=== PATIENT | female | born 1970 | race Caucasian/White ===

== ENCOUNTER 2016-06-24 08:20 | Emergency (ER) | payer MEDICAID ==
[2016-06-24] MEDS ORDERED: 0.9 % SODIUM CHLORIDE 1,000 ML BAG IV ONE (09:04)
--- NOTE | 2016-06-24 09:20 | Emergency Department Record ---
History of Present Illness - General Chief complaint: Extremity Problem Stated complaint: GROIN PAIN SWOLLEN/RT SIDE Time Seen by Provider: 06/24/16 08:57 Source: Patient Mode of Arrival: Ambulatory Limitations: No limitations - History of Present Illness Initial comments: pt c/o rlq and r groin pain w swelling. it hurts to walk. she had cervical ca w mets and had hysterectomy, radiation and chemo Complaint: Abdominal Pain Onset/Timin -: Days(s) Location: Right, Other History of Same: No Severity scale (1-10): 9 Quality: Stabbing, Other Consistency: Constant Improves with: Nothing Worsens with: Nothing Associated Symptoms: Denies other symptoms - Related Data Previous Rx's Medication Instructions Recorded Ciprofloxacin HCl [Cipro] 500 mg PO Q12HR #14 tablet 02/17/16 Naproxen [Naprosyn] 500 mg PO Q12H PRN #10 tab. 02/22/16 Ondansetron [Zofran Odt] 4 mg PO Q8H PRN #10 tab.fabio 02/22/16 Sulfamethoxazole/Trimethoprim 1 each PO BID #14 tablet 06/24/16 [Bactrim Ds Tablet] Allergies Allergy/AdvReac Type Severity Reaction Status Date / Time hydrocodone bitartrate AdvReac VOMITING Verified 06/24/16 08:38 [From Vicodin] Travel Screening - Travel/Exposure Within Last 30 Days Have you traveled within the last 30 days?: No - Travel/Exposure Within Last Year Have you traveled outside the [place] in the last year?: No - Additonal Travel Details Have you been exposed to anyone with a communicable illness?: No - Travel Symptoms Symptom Screening: None Review of Systems Reviewed: No additional complaints except as noted below Constitutional: Reports: As per HPI. Denies: Chills, Fever, Malaise, Night sweats, Weakness, Weight change Eyes: Reports: As per HPI. Denies: Eye discharge, Eye pain, Photophobia, Vision change ENT: Reports: As per HPI. Denies: Congestion, Dental pain, Ear pain, Epistaxis , Hearing loss, Throat pain Respiratory: Reports: As per HPI. Denies: Cough, Dyspnea, Hemoptysis, Stridor, Wheezes Cardiovascular: Reports: As per HPI. Denies: Arrhythmia, Chest pain, Dyspnea on exertion, Edema, Murmurs, Orthopnea, Palpitations, Paroxysmal nocturnal dyspnea, Rheumatic Fever, Syncope Endocrine: Reports: As per HPI. Denies: Fatigue, Heat or cold intolerance, Polydipsia, Polyuria Gastrointestinal: Reports: As per HPI. Denies: Abdominal pain, Constipation, Diarrhea, Hematemesis, Hematochezia, Melena, Nausea, Vomiting Genitourinary: Reports: As per HPI. Denies: Abnormal menses, Discharge, Dyspareunia, Dysuria, Frequency, Hematuria, Incontinence, Retention, Urgency Musculoskeletal: Reports: As per HPI. Denies: Arthralgia, Back pain, Gout, Joint swelling, Myalgia, Neck pain Skin: Reports: As per HPI. Denies: Bruising, Change in color, Change in hair/ nails, Lesions, Pruritus, Rash Neurological: Reports: As per HPI. Denies: Abnormal gait, Confusion, Headache, Numbness, Paresthesias, Seizure, Tingling, Tremors, Vertigo, Weakness Psychiatric: Reports: As per HPI. Denies: Anxiety, Auditory hallucinations, Depression, Homicidal thoughts, Suicidal thoughts, Visual hallucinations Hematological/Lymphatic: Reports: As per HPI. Denies: Anemia, Blood Clots, Easy bleeding, Easy bruising, Swollen glands Past Medical History - SOCIAL HISTORY Smoking Status: Former smoker Alcohol Use: None Drug Use: None - RESPIRATORY Hx Respiratory Disorders: No - CARDIOVASCULAR Hx Cardio Disorders: No - NEURO Hx Neuro Disorders: No - GI Hx GI Disorders: No - Hx Genitourinary Disorders: No - ENDOCRINE Hx Endocrine Disorders: No - MUSCULOSKELETAL Hx Musculoskeletal Disorders: No - PSYCH Hx Psych Problems: Yes Hx Anxiety: Yes - HEMATOLOGY/ONCOLOGY Hx Hematology/Oncology Disorders: Yes Hx Cancer: Yes (cervical) Hx Chemotherapy: Yes (02/10/16) Hx Radiation Therapy: Yes (02/10/16) Comment:: surgery Family Medical History Any Significant Family History?: Yes Hx HTN: Father, Mother Physical Exam - General General Appearance: Alert, Oriented x3, Cooperative, Mild distress - Head Head exam: Normal inspection - Eye Eye exam: Normal appearance, PERRL, EOMI Pupils: Normal accommodation - ENT ENT exam: Normal exam, Mucous membranes moist, Normal external ear exam, Normal orophraynx, TM's normal bilaterally Ear exam: Normal external inspection. negative: External canal tenderness Nasal Exam: Normal inspection. negative: Discharge, Sinus tenderness Mouth exam: Normal external inspection, Tongue normal Teeth exam: Normal inspection. negative: Dental caries Throat exam: Normal inspection. negative: Tonsillar erythema, Tonsillar exudate - Neck Neck exam: Normal inspection, Full ROM. negative: Tenderness - Respiratory Respiratory exam: Normal lung sounds bilaterally. negative: Respiratory distress - Cardiovascular Cardiovascular Exam: Regular rate, Normal rhythm, Normal heart sounds - GI/Abdominal GI/Abdominal exam: Soft, Normal bowel sounds, Tenderness - Rectal Rectal exam: Deferred - exam: Deferred - Extremities Extremities exam: Normal inspection, Full ROM, Normal capillary refill. negative: Tenderness - Back Back exam: Reports: Normal inspection, Full ROM. Denies: Muscle spasm, Rash noted, Tenderness - Neurological Neurological exam: Alert, CN II-XII intact, Normal gait, Oriented X3 - Psychiatric Psychiatric exam: Normal affect, Normal mood - Skin Skin exam: Dry, Intact, Normal color, Warm Course Vital Signs 06/24/16 08:41 Temperature 99.3 F Pulse Rate 86 Respiratory 20 Rate Blood Pressure 114/68 Pulse Ox 97 - Reevaluation(s) Reevaluation #1: 06/24/16 13:38 ct shows cellulitis vs anasarca Medical Decision Making - Lab Data Result diagrams: 06/24/16 09:44 06/24/16 09:44 Disposition Disposition: Discharge Clinical Impression: Cellulitis Qualifiers: Site of cellulitis: trunk Site of cellulitis of trunk: groin Qualified Code(s) : L03.314 - Cellulitis of groin Disposition: Home, Self-Care Condition: (1) Good Instructions: Cellulitis (ED) Additional Instructions: follow up with family doctor. return sooner if worse Prescriptions: Sulfamethoxazole/Trimethoprim [Bactrim Ds Tablet] 1 each PO BID #14 tablet Forms: Patient Portal Access
[2016-06-24 09:52] LABS: BASO % 0.3 % (0-6); EOS % 2.1 % (0-6); GRAN % 63.8 % (47-80); HEMATOCRIT 38.5 % (35.0-47.0); HEMOGLOBIN 12.8 gm/dl (11.6-16.0); MEAN CELL VOLUME 97.5 fl (81-97); MEAN CORPUSCULAR HEMOGLOBIN 32.4 pg (27-33); MEAN CORPUSCULAR HGB CONC 33.2 g/dl (32-36); MONO % 12.8 % (0-9); PLATELET COUNT 200 K/uL (130-400); RED BLOOD COUNT 3.95 M/uL (3.80-5.40); RED CELL DISTRIBUTION WIDTH 12.1 % (11.5-14.5); WHITE BLOOD COUNT W/O DIFF 3.3 K/uL (4.2-12.2)
[2016-06-24 09:55] LABS: URINE APPEARANCE CLEAR; URINE BILIRUBIN NEGATIVE (NEGATIVE); URINE BLOOD NEGATIVE (NEGATIVE); URINE COLOR YELLOW; URINE GLUCOSE (UA) NEGATIVE (NEGATIVE); URINE KETONE NEGATIVE (NEGATIVE); URINE LEUKOCYTE ESTERASE NEGATIVE (NEGATIVE); URINE NITRITE NEGATIVE (NEGATIVE); URINE PROTEIN NEGATIVE (NEGATIVE); URINE UROBILINOGEN 0.2 E.U./dL (0.20 - 1.00)
[2016-06-24 10:04] LABS: ALB/GLOB RATIO 1.4 (1.1-1.8); ALBUMIN 3.6 gm/dL (3.5-5.0); ALKALINE PHOSPHATASE 55 U/L (38-126); ALT/SGPT 33 U/L (9-52); AST/SGOT 21 U/L (14-36); BILIRUBIN,TOTAL 0.35 mg/dL (0.2-1.3); BLOOD UREA NITROGEN 11 mg/dL (7-17); CREATININE 0.7 mg/dL (0.52-1.04); EST GLOMERULAR FILTRATION RATE > 60 ml/min; GLUCOSE,RANDOM 88 mg/dL (70-110); TOTAL PROTEIN 6.1 gm/dL (6.3-8.2)
[2016-06-24] MEDS ORDERED: ONDANSETRON HCL IV 4 MG/2 ML VIAL IVP ONE (11:49)
--- NOTE | 2016-06-24 13:46 | Emergency Department Record ---
History of Present Illness - General Chief complaint: Extremity Problem Stated complaint: GROIN PAIN SWOLLEN/RT SIDE Time Seen by Provider: 06/24/16 08:57 Source: Patient Mode of Arrival: Ambulatory Limitations: No limitations - History of Present Illness Onset/Timin -: Days(s) Location: Right, Other History of Same: No Severity scale (1-10): 9 Quality: Stabbing, Other Consistency: Constant Improves with: Nothing Worsens with: Nothing Associated Symptoms: Denies other symptoms - Related Data Previous Rx's Medication Instructions Recorded Ciprofloxacin HCl [Cipro] 500 mg PO Q12HR #14 tablet 02/17/16 Naproxen [Naprosyn] 500 mg PO Q12H PRN #10 tab. 02/22/16 Ondansetron [Zofran Odt] 4 mg PO Q8H PRN #10 tab.fabio 02/22/16 Oxycodone HCl/Acetaminophen 1 tab PO Q6H PRN #10 tab 06/24/16 [Percocet 5mg/325mg] Sulfamethoxazole/Trimethoprim 1 each PO BID #14 tablet 06/24/16 [Bactrim Ds Tablet] Allergies Allergy/AdvReac Type Severity Reaction Status Date / Time hydrocodone bitartrate AdvReac VOMITING Verified 06/24/16 08:38 [From Vicodin] Travel Screening - Travel/Exposure Within Last 30 Days Have you traveled within the last 30 days?: No - Travel/Exposure Within Last Year Have you traveled outside the [place] in the last year?: No - Additonal Travel Details Have you been exposed to anyone with a communicable illness?: No - Travel Symptoms Symptom Screening: None Review of Systems Constitutional: Reports: As per HPI. Denies: Chills, Fever, Malaise, Night sweats, Weakness, Weight change Eyes: Reports: As per HPI. Denies: Eye discharge, Eye pain, Photophobia, Vision change ENT: Reports: As per HPI. Denies: Congestion, Dental pain, Ear pain, Epistaxis , Hearing loss, Throat pain Respiratory: Reports: As per HPI. Denies: Cough, Dyspnea, Hemoptysis, Stridor, Wheezes Cardiovascular: Reports: As per HPI. Denies: Arrhythmia, Chest pain, Dyspnea on exertion, Edema, Murmurs, Orthopnea, Palpitations, Paroxysmal nocturnal dyspnea, Rheumatic Fever, Syncope Endocrine: Reports: As per HPI. Denies: Fatigue, Heat or cold intolerance, Polydipsia, Polyuria Gastrointestinal: Reports: As per HPI. Denies: Abdominal pain, Constipation, Diarrhea, Hematemesis, Hematochezia, Melena, Nausea, Vomiting Genitourinary: Reports: As per HPI. Denies: Abnormal menses, Discharge, Dyspareunia, Dysuria, Frequency, Hematuria, Incontinence, Retention, Urgency Musculoskeletal: Reports: As per HPI. Denies: Arthralgia, Back pain, Gout, Joint swelling, Myalgia, Neck pain Skin: Reports: As per HPI. Denies: Bruising, Change in color, Change in hair/ nails, Lesions, Pruritus, Rash Neurological: Reports: As per HPI. Denies: Abnormal gait, Confusion, Headache, Numbness, Paresthesias, Seizure, Tingling, Tremors, Vertigo, Weakness Psychiatric: Reports: As per HPI. Denies: Anxiety, Auditory hallucinations, Depression, Homicidal thoughts, Suicidal thoughts, Visual hallucinations Hematological/Lymphatic: Reports: As per HPI. Denies: Anemia, Blood Clots, Easy bleeding, Easy bruising, Swollen glands Past Medical History - SOCIAL HISTORY Smoking Status: Former smoker Alcohol Use: None Drug Use: None - RESPIRATORY Hx Respiratory Disorders: No - CARDIOVASCULAR Hx Cardio Disorders: No - NEURO Hx Neuro Disorders: No - GI Hx GI Disorders: No - Hx Genitourinary Disorders: No - ENDOCRINE Hx Endocrine Disorders: No - MUSCULOSKELETAL Hx Musculoskeletal Disorders: No - PSYCH Hx Psych Problems: Yes Hx Anxiety: Yes - HEMATOLOGY/ONCOLOGY Hx Hematology/Oncology Disorders: Yes Hx Cancer: Yes (cervical) Hx Chemotherapy: Yes (02/10/16) Hx Radiation Therapy: Yes (02/10/16) Comment:: surgery Family Medical History Any Significant Family History?: Yes Hx HTN: Father, Mother Physical Exam - General Limitations: No limitations Course Vital Signs 06/24/16 08:41 Temperature 99.3 F Pulse Rate 86 Respiratory 20 Rate Blood Pressure 114/68 Pulse Ox 97 Medical Decision Making - Lab Data Result diagrams: 06/24/16 09:44 06/24/16 09:44 Lab Results 06/24/16 06/24/16 06/24/16 Range/Units 09:44 09:44 09:44 WBC 3.3 L (4.2-12.2) K/uL RBC 3.95 (3.80-5.40) M/uL Hgb 12.8 (11.6-16.0) gm/dl Hct 38.5 (35.0-47.0) % MCV 97.5 H (81-97) fl MCH 32.4 (27-33) pg MCHC 33.2 (32-36) g/dl RDW 12.1 (11.5-14.5) % Plt Count 200 (130-400) K/uL MPV 11.0 H (7.4-10.4) fl Gran % 63.8 (47-80) % Lymphocytes % 21.0 (16-45) % Monocytes % 12.8 H (0-9) % Eosinophils % 2.1 (0-6) % Basophils % 0.3 (0-6) % D-Dimer 0.26 (0-0.59) mg/L FEU Sodium 139 (136-145) mmol/L Potassium 3.7 (3.5-5.1) mmol/L Chloride 108 H (98-107) mmol/L Carbon Dioxide 27.0 (22-30) mmol/L Anion Gap 4.0 L (7-16) BUN 11 (7-17) mg/dL Creatinine 0.7 (0.52-1.04) mg/dL Estimated GFR > 60 ml/min Random Glucose 88 (70-110) mg/dL Calcium 8.6 (8.5-10.1) mg/dL Total Bilirubin 0.35 (0.2-1.3) mg/dL AST 21 (14-36) U/L ALT 33 (9-52) U/L Alkaline Phosphatase 55 (38-126) U/L Total Protein 6.1 L (6.3-8.2) gm/dL Albumin 3.6 (3.5-5.0) gm/dL Globulin 2.5 (1.4-4.8) gm/dL Albumin/Globulin Ratio 1.4 (1.1-1.8) Urine Color Urine Appearance Urine pH (5.0-8.0) Ur Specific Marshall (1.002-1.030) Urine Protein (NEGATIVE) Urine Glucose (UA) (NEGATIVE) Urine Ketones (NEGATIVE) Urine Blood (NEGATIVE) Urine Nitrite (NEGATIVE) Urine Bilirubin (NEGATIVE) Urine Urobilinogen (0.20 - 1.00) E.U./dL Ur Leukocyte Esterase (NEGATIVE) 06/24/16 Range/Units 09:49 WBC (4.2-12.2) K/uL RBC (3.80-5.40) M/uL Hgb (11.6-16.0) gm/dl Hct (35.0-47.0) % MCV (81-97) fl MCH (27-33) pg MCHC (32-36) g/dl RDW (11.5-14.5) % Plt Count (130-400) K/uL MPV (7.4-10.4) fl Gran % (47-80) % Lymphocytes % (16-45) % Monocytes % (0-9) % Eosinophils % (0-6) % Basophils % (0-6) % D-Dimer (0-0.59) mg/L FEU Sodium (136-145) mmol/L Potassium (3.5-5.1) mmol/L Chloride (98-107) mmol/L Carbon Dioxide (22-30) mmol/L Anion Gap (7-16) BUN (7-17) mg/dL Creatinine (0.52-1.04) mg/dL Estimated GFR ml/min Random Glucose (70-110) mg/dL Calcium (8.5-10.1) mg/dL Total Bilirubin (0.2-1.3) mg/dL AST (14-36) U/L ALT (9-52) U/L Alkaline Phosphatase (38-126) U/L Total Protein (6.3-8.2) gm/dL Albumin (3.5-5.0) gm/dL Globulin (1.4-4.8) gm/dL Albumin/Globulin Ratio (1.1-1.8) Urine Color Yellow Urine Appearance Clear Urine pH 8.0 (5.0-8.0) Ur Specific Marshall 1.020 (1.002-1.030) Urine Protein Negative (NEGATIVE) Urine Glucose (UA) Negative (NEGATIVE) Urine Ketones Negative (NEGATIVE) Urine Blood Negative (NEGATIVE) Urine Nitrite Negative (NEGATIVE) Urine Bilirubin Negative (NEGATIVE) Urine Urobilinogen 0.2 (0.20 - 1.00) E.U./dL Ur Leukocyte Esterase Negative (NEGATIVE) Disposition Clinical Impression: Cellulitis Qualifiers: Site of cellulitis: trunk Site of cellulitis of trunk: groin Qualified Code(s) : L03.314 - Cellulitis of groin Disposition: Home, Self-Care Condition: (1) Good Instructions: Cellulitis (ED) Additional Instructions: follow up with family doctor. return sooner if worse Prescriptions: Sulfamethoxazole/Trimethoprim [Bactrim Ds Tablet] 1 each PO BID #14 tablet Oxycodone HCl/Acetaminophen [Percocet 5mg/325mg] 1 tab PO Q6H PRN #10 tab PRN Reason: Pain - Moderate (5-7) Forms: Patient Portal Access
--- NOTE | 2016-06-28 13:33 | CT SCAN REPORT ---
EXAM: ABDOMEN AND PELVIS CT WITH IV CONTRAST HISTORY: ACUTE RIGHT GROIN PAIN FOR THREE DAYS. TECHNIQUE: Contiguous axial images from the lung bases to the symphysis pubis were obtained after the uneventful intravenous administration of 100 ml of Omnipaque 300. Oral contrast was also utilized. Comparison: Abdominal ultrasound 02/21/16. Abdomen CT 11/30/14. FINDINGS: The lung bases are clear. The liver, spleen, kidneys, adrenals, pancreas and gallbladder are unremarkable. The visualized loops of small and large bowel are of normal caliber with no bowel wall thickening. Normal appendix. Moderate fecal material throughout the colon. There is wall thickening of the urinary bladder with adjacent inflammatory fat stranding for which acute cystitis is not excluded. No free intraperitoneal fluid or adenopathy. No lytic or blastic osseous lesion. There is no evidence of inguinal hernia. Tiny small, but conspicuous inguinal lymph nodes bilaterally. Minimal fat stranding in the inguinal regions. IMPRESSION: 1. URINARY BLADDER WALL THICKENING WITH ADJACENT INFLAMMATORY FAT STRANDING FOR WHICH ACUTE CYSTITIS IS NOT EXCLUDED. 2. SUBCUTANEOUS FAT STRANDING IN THE INGUINAL REGIONS COULD RELATE TO ANASARCA OR CELLULITIS. CLINICALLY CORRELATE. JOB NUMBER: [id number] [facility]
== END 2016-06-24 13:52 | disposition home or self-care (01) ==
LOC: ER 08:20
DX: L03.314 Cellulitis of groin (principal); R10.31 Right lower quadrant pain; Z85.41 Personal history of malignant neoplasm of cervix uteri
CPT/HCPCS: 99284 ×2; 96374; 85025; 80053; 81003; 85379; 74177; Q9967; J2405; J7030

== ENCOUNTER 2016-07-23 21:28 | Emergency (ER) | payer MEDICAID ==
[2016-07-23 21:45] LABS: BASO % 0.4 % (0-6); EOS % 2.5 % (0-6); GRAN % 59.1 % (47-80); HEMATOCRIT 38.1 % (35.0-47.0); HEMOGLOBIN 12.8 gm/dl (11.6-16.0); LYMPH % 26.7 % (16-45); MEAN CELL VOLUME 96.5 fl (81-97); MEAN CORPUSCULAR HEMOGLOBIN 32.4 pg (27-33); MEAN CORPUSCULAR HGB CONC 33.6 g/dl (32-36); MEAN PLATELET VOLUME 10.8 fl (7.4-10.4); MONO % 11.3 % (0-9); PLATELET COUNT 221 K/uL (130-400); RED BLOOD COUNT 3.95 M/uL (3.80-5.40); RED CELL DISTRIBUTION WIDTH 12.2 % (11.5-14.5); WHITE BLOOD COUNT W/O DIFF 4.8 K/uL (4.2-12.2)
[2016-07-23 21:57] LABS: ALB/GLOB RATIO 1.6 (1.1-1.8); ALBUMIN 3.9 gm/dL (3.5-5.0); ALKALINE PHOSPHATASE 62 U/L (38-126); ALT/SGPT 27 U/L (9-52); ANION GAP 7.2 (7-16); AST/SGOT 22 U/L (14-36); BILIRUBIN,TOTAL 0.48 mg/dL (0.2-1.3); BLOOD UREA NITROGEN 8 mg/dL (7-17); CARBON DIOXIDE 27.8 mmol/L (22-30); CREATINE PHOSPHOKINASE 94 U/L (30-135); CREATININE 0.8 mg/dL (0.52-1.04); EST GLOMERULAR FILTRATION RATE > 60 ml/min; GLUCOSE,RANDOM 110 mg/dL (70-110); TOTAL PROTEIN 6.4 gm/dL (6.3-8.2)
--- NOTE | 2016-07-23 21:57 | Emergency Department Record ---
History of Present Illness - General Chief Complaint: Chest Pain Stated Complaint: CHEST PAIN Time Seen by Provider: 07/23/16 21:36 Source: Patient Mode of Arrival: Ambulatory Limitations: No limitations - History of Present Illness Initial Comments: 45 yo female presents to ED with a CC of "chest pressure" that began 30 minutes prior to arrival, described as "heaviness". Patient reports similar symptoms for the past couple of months, denies previous heart or lung problems. Patient does report that she is being evaluated by a traveling phlebotomist but cannot remember his names, is wearing a monitor tech prior to arrival. Patient reports a history of elevated cholesterol and cervical cancer s/p chemo and radiation that was completed 5 months ago. Patient denies h/o DVT. denies yonatan pain, swelling, or pain with deep breaths. Patient denies fevers, chills, or cough symptoms. MD Complaint: Chest pain Onset/Timin -: Hour(s) Onset: Other Pain Location: Substernal, Epigastric Pain Radiation: Neck Severity: Moderate Severity scale (1-10): 6 Quality: Tightness Consistency: Constant, Intermittent Improves With: Nothing Worsens With: Movement Treatments Prior to Arrival: None - Related Data On Oral Contraceptives: No Home Medications Medication Instructions Recorded Confirmed Last Taken No Home Med [NO HOME MEDS] 07/23/16 07/23/16 Unknown Allergies Allergy/AdvReac Type Severity Reaction Status Date / Time hydrocodone bitartrate AdvReac VOMITING Verified 07/23/16 21:29 [From Vicodin] Travel Screening - Travel/Exposure Within Last 30 Days Have you traveled within the last 30 days?: No - Travel/Exposure Within Last Year Have you traveled outside the [place] in the last year?: No - Additonal Travel Details Have you been exposed to anyone with a communicable illness?: No - Travel Symptoms Symptom Screening: None Review of Systems Constitutional: Denies: Chills, Fever, Malaise, Night sweats Eyes: Denies: Eye discharge, Eye pain ENT: Denies: Congestion, Ear pain, Epistaxis Respiratory: Denies: Cough, Dyspnea Cardiovascular: Reports: Chest pain. Denies: Dyspnea on exertion, Palpitations Endocrine: Denies: Fatigue, Heat or cold intolerance Gastrointestinal: Denies: Abdominal pain, Nausea, Vomiting Genitourinary: Denies: Incontinence, Retention Musculoskeletal: Denies: Arthralgia, Back pain, Gout, Joint swelling Skin: Denies: Bruising, Change in color Neurological: Denies: Abnormal gait, Confusion, Headache, Seizure Psychiatric: Denies: Anxiety Hematological/Lymphatic: Denies: Anemia, Blood Clots Past Medical History - SOCIAL HISTORY Smoking Status: Former smoker Alcohol Use: None Drug Use: None - RESPIRATORY Hx Respiratory Disorders: No - CARDIOVASCULAR Hx Cardio Disorders: No - NEURO Hx Neuro Disorders: No - GI Hx GI Disorders: No - Hx Genitourinary Disorders: No - ENDOCRINE Hx Endocrine Disorders: No - MUSCULOSKELETAL Hx Musculoskeletal Disorders: No - PSYCH Hx Psych Problems: Yes Hx Anxiety: Yes - HEMATOLOGY/ONCOLOGY Hx Hematology/Oncology Disorders: Yes Hx Cancer: Yes (cervical) Hx Chemotherapy: Yes (02/10/16) Hx Radiation Therapy: Yes (02/10/16) Comment:: surgery Family Medical History Any Significant Family History?: No Hx HTN: Father, Mother Physical Exam - General General Appearance: Alert, Oriented x3, Cooperative, Moderate distress Limitations: No limitations - Head Head exam: Atraumatic, Normocephalic, Normal inspection Head exam detail: negative: Abrasion, Contusion, Lang's sign, General tenderness, Hematoma, Laceration - Eye Eye exam: Normal appearance. negative: Conjunctival injection, Periorbital swelling, Periorbital tenderness, Scleral icterus - ENT Ear exam: negative: Auricular hematoma, Auricular trauma Nasal Exam: negative: Active bleeding, Discharge, Dried blood, Foreign body Mouth exam: negative: Drooling, Laceration, Muffled voice, Tongue elevation - Neck Neck exam: Normal inspection. negative: Meningismus, Tenderness - Respiratory Respiratory exam: Normal lung sounds bilaterally. negative: Rales, Respiratory distress, Rhonchi, Stridor - Cardiovascular Cardiovascular Exam: Regular rate, Normal rhythm, Normal heart sounds - GI/Abdominal GI/Abdominal exam: Soft. negative: Rebound, Rigid, Tenderness - Rectal Rectal exam: Deferred - exam: Deferred - Extremities Extremities exam: Normal inspection. negative: Calf tenderness, Pedal edema, Tenderness - Back Back exam: Denies: CVA tenderness (R), CVA tenderness (L) - Neurological Neurological exam: Alert, Normal gait, Oriented X3 - Psychiatric Psychiatric exam: Normal affect, Normal mood - Skin Skin exam: Normal color. negative: Abrasion Type of lesion: negative: abrasion Course Vital Signs 07/23/16 21:29 Temperature 98.4 F Pulse Rate 87 Respiratory 20 Rate Blood Pressure 118/87 Pulse Ox 96 - Reevaluation(s) Reevaluation #1: 07/23/16 21:56 EKG: NSR 82 Normal axis, normal intervals No acute ST-T wave changes are present Reevaluation #2: 07/23/16 22:17 Labs reviewed and are grossly unremarkable for an acute process. D-dimer is negative, CXR ordered. Patient was given Nitro for her pain x 1 without relief, SBP down to 106. Patient then reported to nursing staff that her symptoms began during an argument, feels her symptoms may be due to anxiety. Ativan 0.5 mg IV ordered for her symptoms. Will continue to monitor. Reevaluation #3: 07/23/16 23:03 Patient reassessed and reports that she is resting comfortably. Will draw 3- hour troponin to exclude acute myocardial imaging. Reevaluation #4: 07/24/16 00:54 CTA Chest: No acute process Reevaluation #5: 07/24/16 00:59 Repeat Troponin is negative, patient reports that she is resting comfortably and appears stable for discharge at this time. Medical Decision Making - Lab Data Result diagrams: 07/23/16 21:30 07/23/16 21:30 Lab Results 07/23/16 Range/Units 21:30 WBC 4.8 (4.2-12.2) K/uL RBC 3.95 (3.80-5.40) M/uL Hgb 12.8 (11.6-16.0) gm/dl Hct 38.1 (35.0-47.0) % MCV 96.5 (81-97) fl MCH 32.4 (27-33) pg MCHC 33.6 (32-36) g/dl RDW 12.2 (11.5-14.5) % Plt Count 221 (130-400) K/uL MPV 10.8 H (7.4-10.4) fl Gran % 59.1 (47-80) % Lymphocytes % 26.7 (16-45) % Monocytes % 11.3 H (0-9) % Eosinophils % 2.5 (0-6) % Basophils % 0.4 (0-6) % Disposition Disposition: Discharge Clinical Impression: Chest pain Qualifiers: Chest pain type: unspecified Qualified Code(s): R07.9 - Chest pain, unspecified Disposition: Home, Self-Care Condition: (2) Stable Instructions: Chest Pain (ED) Additional Instructions: Return to ED if your symptoms worsen or if you have any concerns. Follow-up with Dr. Naidu in 1-3 days as directed. Forms: Patient Portal Access Time of Disposition: 01:01
[2016-07-23] MEDS: ASPIRIN 81 MG CHEWABLE TABLET PO ONE (22:00)
[2016-07-23] MEDS: NITROGLYCERIN 0.4MG SL TABLET #25 BTL SL PRN (22:01)
[2016-07-23 22:09] LABS: CKMB 0.6 ug/L (0-6)
[2016-07-23] MEDS: LORAZEPAM 2 MG/ML VIAL IV ONE (22:12)
[2016-07-23 22:14] LABS: TROPONIN I < 0.012 ng/mL (0.00-0.034)
== END 2016-07-24 01:10 | disposition home or self-care (01) ==
LOC: ER 21:28
DX: R07.89 Other chest pain (principal); Z85.41 Personal history of malignant neoplasm of cervix uteri
CPT/HCPCS: 99284 ×2; 96374; 82550; 85025; 82553; 84484; 80053; 85379; 71020; 71275; 93005; 93010; Q9967; J2060

== ENCOUNTER 2017-04-19 13:06 | Emergency (ER) | payer MEDICAID ==
[2017-04-19] MEDS ORDERED: 0.9 % SODIUM CHLORIDE 1,000 ML BAG IV ONE ×2 (13:41→15:36)
[2017-04-19] MEDS ORDERED: ONDANSETRON HCL IV 4 MG/2 ML VIAL IV ONE (13:41)
--- NOTE | 2017-04-19 13:42 | Emergency Department Record ---
History of Present Illness - General Source: Patient Mode of Arrival: Ambulatory Limitations: No limitations - History of Present Illness Initial comments: 46 yo female presents with nausea, vomiting and diarrhea for a few days. She states the onset was soon after eating at a buffet. No blood in the stools or vomit. No rash. No fevers. She feels weak and tired. The diarrhea has been mild. She vomited about 6 times today. She had a prior history of cervical cancer that is in remission. MD complaint: Diarrhea, Nausea, Vomiting Onset/Timin -: Days(s) Description of Vomiting: Watery Description of Diarrhea: Water Location: Periumbilcal Severity: Moderate Quality: Aching Consistency: Constant Improves with: None Worsens with: Eating Associated Symptoms: Nausea/vomiting <LIZBETH WALKER - Last Filed: 04/19/17 16:57> <Brunilda Torres - Last Filed: 04/19/17 20:14> - General Chief complaint: Nausea, Vomiting, Diarrhea Stated complaint: VOMITING AND NAUSEA Time Seen by Provider: 04/19/17 13:20 - Related Data Home Medications Medication Instructions Recorded Confirmed Last Taken Ibuprofen [Motrin] 800 mg PRN 04/19/17 Unknown Ondansetron HCl [Zofran] 8 mg PO 04/19/17 04/19/17 8 mg Previous Rx's Medication Instructions Recorded Ondansetron [Zofran Odt] 4 mg PO Q8H #10 tab.rapdis 04/19/17 Allergies Allergy/AdvReac Type Severity Reaction Status Date / Time hydrocodone bitartrate AdvReac VOMITING Verified 04/19/17 13:47 [From Vicodin] Travel Screening - Travel/Exposure Within Last 30 Days Have you traveled within the last 30 days?: No - Travel/Exposure Within Last Year Have you traveled outside the [place] in the last year?: No - Additonal Travel Details Have you been exposed to anyone with a communicable illness?: No - Travel Symptoms Symptom Screening: Vomiting, Lack of Appetite <LIZBETH WALKER - Last Filed: 04/19/17 16:57> Review of Systems Constitutional: Reports: Malaise. Denies: Chills, Fever Eyes: Denies: Eye discharge, Eye pain, Photophobia, Vision change ENT: Denies: Congestion, Ear pain, Epistaxis, Throat pain Respiratory: Denies: Cough, Dyspnea, Hemoptysis, Wheezes Cardiovascular: Denies: Chest pain, Palpitations, Syncope Endocrine: Reports: Fatigue. Denies: Polydipsia, Polyuria Gastrointestinal: Reports: Abdominal pain, Diarrhea, Nausea, Vomiting. Denies: Constipation, Hematemesis, Hematochezia, Melena Genitourinary: Denies: Dysuria, Urgency, Other Musculoskeletal: Denies: Arthralgia, Back pain, Joint swelling Skin: Denies: Bruising, Change in color, Rash Neurological: Denies: Headache, Numbness, Weakness Psychiatric: Denies: Anxiety Hematological/Lymphatic: Denies: Blood Clots, Easy bleeding, Easy bruising, Swollen glands <LIZBETH WALKER - Last Filed: 04/19/17 16:57> Past Medical History - SOCIAL HISTORY Smoking Status: Former smoker Alcohol Use: None Drug Use: None - RESPIRATORY Hx Respiratory Disorders: No - CARDIOVASCULAR Hx Cardio Disorders: No - NEURO Hx Neuro Disorders: No - GI Hx GI Disorders: No - Hx Genitourinary Disorders: No - ENDOCRINE Hx Endocrine Disorders: No - MUSCULOSKELETAL Hx Musculoskeletal Disorders: No - PSYCH Hx Psych Problems: Yes Hx Anxiety: Yes - HEMATOLOGY/ONCOLOGY Hx Hematology/Oncology Disorders: Yes Hx Cancer: Yes (cervical) Hx Chemotherapy: Yes (02/10/16) Hx Radiation Therapy: Yes (02/10/16) Comment:: surgery <LIZBETH WALKER - Last Filed: 04/19/17 16:57> Family Medical History Any Significant Family History?: No Hx HTN: Father, Mother <LIZBETH WALKER - Last Filed: 04/19/17 16:57> Physical Exam - General General Appearance: Alert, Oriented x3, Cooperative, No acute distress Limitations: No limitations - Head Head exam: Normal inspection - Eye Eye exam: Normal appearance, PERRL. negative: Conjunctival injection, Periorbital swelling - ENT ENT exam: Normal exam, Mucous membranes moist Ear exam: Normal external inspection Nasal Exam: Normal inspection Mouth exam: Normal external inspection - Neck Neck exam: Normal inspection, Full ROM. negative: Tenderness - Respiratory Respiratory exam: Normal lung sounds bilaterally. negative: Respiratory distress, Rhonchi, Stridor, Wheezes - Cardiovascular Cardiovascular Exam: Regular rate, Normal rhythm, Normal heart sounds - GI/Abdominal GI/Abdominal exam: Soft, Tenderness (mild periumbilical). negative: Distended, Guarding, Rebound, Rigid - Rectal Rectal exam: Deferred - exam: Deferred - Extremities Extremities exam: Normal inspection, Full ROM, Normal capillary refill. negative: Pedal edema, Tenderness - Back Back exam: Reports: Normal inspection, Full ROM. Denies: Muscle spasm, Rash noted, Tenderness - Neurological Neurological exam: Alert, Normal gait, Oriented X3 - Psychiatric Psychiatric exam: Normal affect, Normal mood - Skin Skin exam: Dry, Intact, Normal color, Warm <LIZBETH WALKER - Last Filed: 04/19/17 16:57> Course Vital Signs 04/19/17 13:28 Temperature 98.4 F Pulse Rate 80 Respiratory 16 Rate Blood Pressure 102/84 Pulse Ox 99 - Reevaluation(s) Reevaluation #1: 04/19/17 13:35 Vitals reviewed No acute changes. 04/19/17 14:30 No acute changes of the CBC or HCG 04/19/17 14:42 No acute changes on the labs 04/19/17 15:04 No acute changes in the vital or any labs after symptom onset Sunday The patient has been given IVF and antiemetics. 04/19/17 15:10 I discussed the labs results with the patient . No acute changes. The phenergan has resolved her nausea at this time. No diarrhea at this time. 04/19/17 16:57 The patient on recheck states she has increased nausea again and now pain that is returning. No diarrhea. I ordered additional medication and CT given the pain. <LIZBETH WALKER - Last Filed: 04/19/17 16:57> Vital Signs 04/19/17 04/19/17 04/19/17 13:28 15:45 19:24 Temperature 98.4 F Pulse Rate 80 Pulse Rate [ 71 68 Pulse Ox Probe] Respiratory 16 14 16 Rate Blood Pressure 102/84 Blood Pressure 120/75 148/101 [Right Arm] Pulse Ox 99 99 98 - Reevaluation(s) Reevaluation #2: 04/19/17 20:10 cat scan is basically neg, pt feels much better <Brunilda Torres - Last Filed: 04/19/17 20:14> Medical Decision Making - Lab Data Result diagrams: 04/19/17 14:00 04/19/17 14:00 <LIZBETH WALKER - Last Filed: 04/19/17 16:57> - Lab Data Result diagrams: 04/19/17 14:00 04/19/17 14:00 Lab Results 04/19/17 04/19/17 04/19/17 Range/Units 14:00 14:00 14:00 WBC 5.8 (4.2-12.2) K/uL RBC 4.38 (3.80-5.40) M/uL Hgb 13.6 (11.6-16.0) gm/dl Hct 41.4 (35.0-47.0) % MCV 94.5 (81-97) fl MCH 31.1 (27-33) pg MCHC 32.9 (32-36) g/dl RDW 12.8 (11.5-14.5) % Plt Count 223 (130-400) K/uL MPV 11.6 H (7.4-10.4) fl Gran % 72.4 (47-80) % Lymphocytes % 16.8 (16-45) % Monocytes % 9.2 H (0-9) % Eosinophils % 1.4 (0-6) % Basophils % 0.2 (0-6) % Sodium 141 (136-145) mmol/L Potassium 4.2 (3.4-4.5) mmol/L Chloride 101 (98-107) mmol/L Carbon Dioxide 25.0 (22-29) mmol/L Anion Gap 15.0 (7-16) BUN 14 (6-20) mg/dL Creatinine 0.5 (0.5-0.9) mg/dL Estimated GFR > 60 mL/min Random Glucose 87 (74-109) mg/dL Calcium 9.6 (8.6-10.0) mg/dL Total Bilirubin 0.40 (0.2-1.0) mg/dL AST 13 (10.0-35.0) U/L ALT 12 (<33) U/L Alkaline Phosphatase 61 (35-104) U/L Total Protein 7.7 (6.6-8.7) g/dL Albumin 4.8 (4.0-5.0) g/dL Globulin 2.9 (1.4-4.8) gm/dL Albumin/Globulin Ratio 1.7 (1.1-1.8) Lipase 32 (13-60) U/L Urine Color Yellow Urine Appearance Sl cloudy Urine pH 8.0 (5.0-8.0) Ur Specific [place] 1.020 (1.002-1.030) Urine Protein Trace H (NEGATIVE) Urine Glucose (UA) Negative (NEGATIVE) Urine Ketones Negative (NEGATIVE) Urine Blood Negative (NEGATIVE) Urine Nitrite Negative (NEGATIVE) Urine Bilirubin Negative (NEGATIVE) Urine Urobilinogen 0.2 (0.20 - 1.00) E.U./dL Ur Leukocyte Esterase Trace H (NEGATIVE) Urine RBC None seen (NONE SEEN) Urine WBC 0 - 2 (0-2/hpf) Ur Epithelial Cells 7 - 10 (FEW) Amorphous Sediment 3+ Urine Mucus Heavy Urine HCG, Qual Negative (NEGATIVE) <Brunilda Torres - Last Filed: 04/19/17 20:14> Disposition <LIZBETH WALKER - Last Filed: 04/19/17 16:57> Disposition: Discharge <Brunilda Torres - Last Filed: 04/19/17 20:14> Clinical Impression: Dehydration Vomiting Qualifiers: Vomiting type: unspecified Vomiting Intractability: non-intractable Nausea presence: with nausea Qualified Code(s): R11.2 - Nausea with vomiting, unspecified Disposition: Home, Self-Care Instructions: Acute Nausea and Vomiting (ED) Additional Instructions: Rest and stay well hydrated Return if worse, uncontrolled vomiting, pain, fever or any new concerns Call your doctor for close follow up Prescriptions: Ondansetron [Zofran Odt] 4 mg PO Q8H #10 tab.rapdis Forms: Patient Portal Access Quality - Quality Measures Quality Measures: N/A - Blood Pressure Screening Does Patient Have Any of the Following: No Blood Pressure Classification: Pre-Hypertensive BP Reading Systolic Measurement: 102 Diastolic Measurement: 84 Screening for High Blood Pressure: < Pre-Hypertensive BP, F/U Documented > [ G8950] Pre-Hypertensive Follow-up Interventions: Referral to alternative/primary care provider. <LIZBETH WALKER - Last Filed: 04/19/17 16:57> - Blood Pressure Screening Does Patient Have Any of the Following: No Blood Pressure Classification: Pre-Hypertensive BP Reading Systolic Measurement: 102 Diastolic Measurement: 84 Screening for High Blood Pressure: < Pre-Hypertensive BP, F/U Documented > [ G8950] Pre-Hypertensive Follow-up Interventions: Follow-up with rescreen every year. <Brown,Brunilda L - Last Filed: 04/19/17 20:14>
[2017-04-19 14:21] LABS: URINE BILIRUBIN NEGATIVE (NEGATIVE); URINE BLOOD NEGATIVE (NEGATIVE); URINE COLOR YELLOW; URINE GLUCOSE (UA) NEGATIVE (NEGATIVE); URINE KETONE NEGATIVE (NEGATIVE); URINE LEUKOCYTE ESTERASE TRACE (NEGATIVE); URINE NITRITE NEGATIVE (NEGATIVE); URINE PROTEIN TRACE (NEGATIVE); URINE UROBILINOGEN 0.2 E.U./dL (0.20 - 1.00)
[2017-04-19 14:22] LABS: BASO % 0.2 % (0-6); EOS % 1.4 % (0-6); GRAN % 72.4 % (47-80); HEMATOCRIT 41.4 % (35.0-47.0); HEMOGLOBIN 13.6 gm/dl (11.6-16.0); LYMPH % 16.8 % (16-45); MEAN CELL VOLUME 94.5 fl (81-97); MEAN CORPUSCULAR HEMOGLOBIN 31.1 pg (27-33); MEAN CORPUSCULAR HGB CONC 32.9 g/dl (32-36); MEAN PLATELET VOLUME 11.6 fl (7.4-10.4); MONO % 9.2 % (0-9); PLATELET COUNT 223 K/uL (130-400); RED BLOOD COUNT 4.38 M/uL (3.80-5.40); RED CELL DISTRIBUTION WIDTH 12.8 % (11.5-14.5); WHITE BLOOD COUNT W/O DIFF 5.8 K/uL (4.2-12.2)
[2017-04-19 14:24] LABS: HCG,QUALITATIVE URINE NEGATIVE (NEGATIVE)
[2017-04-19 14:31] LABS: URINE APPEARANCE SL CLOUDY; URINE RBC NONE SEEN (NONE SEEN); URINE WBC 0 - 2 (0-2/hpf)
[2017-04-19 14:32] LABS: URINE AMORPHOUS SEDIMENT 3+; URINE MUCUS HEAVY
[2017-04-19 14:33] LABS: BLOOD UREA NITROGEN 14 mg/dL (6-20); CREATININE 0.5 mg/dL (0.5-0.9); EST GLOMERULAR FILTRATION RATE > 60 mL/min
[2017-04-19 14:34] LABS: TOTAL PROTEIN 7.7 g/dL (6.6-8.7)
[2017-04-19 14:35] LABS: GLUCOSE,RANDOM 87 mg/dL (74-109)
[2017-04-19 14:38] LABS: ALB/GLOB RATIO 1.7 (1.1-1.8); ALBUMIN 4.8 g/dL (4.0-5.0); ALKALINE PHOSPHATASE 61 U/L (35-104); ALT/SGPT 12 U/L (<33); AST/SGOT 13 U/L (10.0-35.0); LIPASE 32 U/L (13-60)
[2017-04-19] MEDS ORDERED: PROMETHAZINE HCL 12.5 MG in 0.9 % SODIUM CHLORIDE 100ML 100 ML IVPB ONE (14:47)
[2017-04-19] MEDS ORDERED: METOCLOPRAMIDE HCL 10 MG/2 ML VIAL IVP ONE (16:56)
[2017-04-19] MEDS ORDERED: ACETAMINOPHEN 1,000 MG/100 ML BTL IVPB ONE (16:56)
[2017-04-19] MEDS ORDERED: KETOROLAC 30 MG/ML VIAL IVP ONE (19:23)
[2017-04-19] MEDS ORDERED: ONDANSETRON HCL IV 4 MG/2 ML VIAL IVP ONE (19:23)
--- NOTE | 2017-04-21 08:47 | CT SCAN REPORT ---
EXAM: CT SCAN ABDOMEN/PELVIS W CONTRAST HISTORY: NAUSEA AND VOMITING FOR A COUPLE OF DAYS. TECHNIQUE: Axial CT scan of the abdomen and pelvis performed following oral and IV contrast administration. Please see the medical record for IV contrast dosage and brand specifics. Preliminary report provided by [facility]. COMPARISON: CT abdomen and pelvis 06/24/16. FINDINGS: No calcified gallstones are seen within the gallbladder. No definite hepatic, splenic, adrenal, pancreatic, or renal mass identified. The typical routine delayed images of the kidneys, however, were not obtained on this emergency study. Oral contrast given has passed throughout the bowel to the rectum with no bowel obstruction evident. Moderate diverticulosis in the left side of the colon. The sigmoid colon has a somewhat thick-walled appearance. No adjacent inflammatory-type changes are seen, however, and this may just be due to incomplete distention. Mild sigmoid diverticulitis is felt to be less likely. A few diverticular right side of the colon as well with no diverticulitis in this location evident. Appendix is visualized and appears negative. Uterus not identified, presumably surgically absent. Tiny nodule in the right posterior costophrenic angle also present previously is likely a tiny granuloma. No free intraperitoneal air or free intraperitoneal fluid evident. IMPRESSION: 1. POSTOP HYSTERECTOMY. 2. MODERATE DIVERTICULOSIS LEFT SIDE OF THE COLON WITH A FEW DIVERTICULA IN THE RIGHT SIDE OF THE COLON WELL. SOMEWHAT THICK-WALLED APPEARANCE OF THE SIGMOID COLON IS PROBABLY JUST DUE TO INCOMPLETE DISTENTION WITH THE POSSIBILITY OF MILD CHANGES OF ACUTE SIGMOID DIVERTICULITIS FELT TO BE LESS LIKELY. JOB NUMBER: [id number] [facility]
== END 2017-04-19 20:21 | disposition home or self-care (01) ==
LOC: ER 13:06
DX: E86.0 Dehydration (principal); R11.2 Nausea with vomiting, unspecified; R19.7 Diarrhea, unspecified; Z85.41 Personal history of malignant neoplasm of cervix uteri
CPT/HCPCS: 99284 ×2; 96376; 96374; 96375; 83690; 85025; 80053; 81001; 81025; 74177; Q9967; J1885; J2405; J2550; J2765; J7030

== ENCOUNTER 2018-12-27 13:10 | Emergency (ER) | payer MEDICAID ==
--- NOTE | 2018-12-27 14:20 | Emergency Department Record ---
History of Present Illness - General Chief Complaint: Headache Migraine Stated Complaint: RASH AMD GURROLA Time Seen by Provider: 12/27/18 14:10 Source: Patient, RN notes reviewed Mode of Arrival: Ambulatory - History of Present Illness Initial Comments: patient states headache couple days ago and she said is taking her meds from the neurologist for headaches and she doesn't want to have any treatments for her headaches and she only wants to use the medications her neurologist prescribes for her headaches and what she came to the hospital is for the red rash on her left leg which itches and no signs of a insect bite. Onset/Timin -: Days(s) Quality: Throbbing Improves With: Nothing Worsens With: None Treatments Prior to Arrival: None - Related Data Home Medications Medication Instructions Recorded Confirmed Last Taken Atorvastatin Calcium 1 tab PO QHS 12/27/18 12/27/18 12/27/18 Citalopram Hydrobromide 20 mg PO DAILY 12/27/18 12/27/18 12/27/18 [Citalopram HBr] Verapamil HCl [Calan Sr] 1 tab PO DAILY 12/27/18 12/27/18 12/27/18 Previous Rx's Medication Instructions Recorded Triamcinolone Acet Cream [Kenalog 1 apply TP BID #30 gm 12/27/18 Cream] Allergies Allergy/AdvReac Type Severity Reaction Status Date / Time hydrocodone bitartrate AdvReac VOMITING Verified 04/19/17 13:47 [From Vicodin] Travel Screening - Travel/Exposure Within Last 30 Days Have you traveled within the last 30 days?: No - Travel/Exposure Within Last Year Have you traveled outside the [place] in the last year?: No - Additonal Travel Details Have you been exposed to anyone with a communicable illness?: No - Travel Symptoms Symptom Screening: Headache Review of Systems Reviewed: No additional complaints except as noted below Constitutional: Reports: As per HPI. Denies: Chills, Fever, Malaise, Night sweats, Weakness, Weight change Eyes: Reports: As per HPI. Denies: Eye discharge, Eye pain, Photophobia, Vision change ENT: Reports: As per HPI. Denies: Congestion, Dental pain, Ear pain, Epistaxis, Hearing loss, Throat pain Respiratory: Reports: As per HPI. Denies: Cough, Dyspnea, Hemoptysis, Stridor, Wheezes Cardiovascular: Reports: As per HPI. Denies: Arrhythmia, Chest pain, Dyspnea on exertion, Edema, Murmurs, Orthopnea, Palpitations, Paroxysmal nocturnal dyspnea, Rheumatic Fever, Syncope Endocrine: Reports: As per HPI. Denies: Fatigue, Heat or cold intolerance, Polydipsia, Polyuria Gastrointestinal: Reports: As per HPI. Denies: Abdominal pain, Constipation, Diarrhea, Hematemesis, Hematochezia, Melena, Nausea, Vomiting Genitourinary: Reports: As per HPI. Denies: Abnormal menses, Discharge, Dyspareunia, Dysuria, Frequency, Hematuria, Incontinence, Retention, Urgency Musculoskeletal: Reports: As per HPI. Denies: Arthralgia, Back pain, Gout, Joint swelling, Myalgia, Neck pain Skin: Reports: As per HPI. Denies: Bruising, Change in color, Change in hair/nails, Lesions, Pruritus, Rash Neurological: Reports: As per HPI. Denies: Abnormal gait, Confusion, Headache, Numbness, Paresthesias, Seizure, Tingling, Tremors, Vertigo, Weakness Psychiatric: Reports: As per HPI. Denies: Anxiety, Auditory hallucinations, Depression, Homicidal thoughts, Suicidal thoughts, Visual hallucinations Hematological/Lymphatic: Reports: As per HPI. Denies: Anemia, Blood Clots, Easy bleeding, Easy bruising, Swollen glands Past Medical History - SOCIAL HISTORY Smoking Status: Former smoker Alcohol Use: None Drug Use: Rare Drug Use Detail:: Marijuana - RESPIRATORY Hx Respiratory Disorders: No - CARDIOVASCULAR Hx Cardio Disorders: Yes Hx Hypertension: Yes - NEURO Hx Neuro Disorders: Yes Hx CVA: Yes (2018) - GI Hx GI Disorders: Yes Hx Diverticulitis: Yes (losis) - Hx Genitourinary Disorders: No - ENDOCRINE Hx Endocrine Disorders: No - MUSCULOSKELETAL Hx Musculoskeletal Disorders: No - PSYCH Hx Psych Problems: Yes Hx Anxiety: Yes - HEMATOLOGY/ONCOLOGY Hx Hematology/Oncology Disorders: Yes Hx Cancer: Yes (cervical) Hx Chemotherapy: Yes (02/10/16) Hx Radiation Therapy: Yes (02/10/16) Comment:: surgery Family Medical History Any Significant Family History?: No Hx HTN: Father, Mother Physical Exam - General General Appearance: Alert, Oriented x3, Cooperative, No acute distress - Head Head exam: Normal inspection - Eye Eye exam: Normal appearance, PERRL Pupils: Normal accommodation - ENT ENT exam: Normal exam, Mucous membranes moist, Normal external ear exam, Normal orophraynx, TM's normal bilaterally Ear exam: Normal external inspection. negative: External canal tenderness Nasal Exam: Normal inspection. negative: Discharge, Sinus tenderness Mouth exam: Normal external inspection, Tongue normal Teeth exam: Normal inspection. negative: Dental caries Throat exam: Normal inspection. negative: Tonsillar erythema, Tonsillar exudate - Neck Neck exam: Normal inspection, Full ROM. negative: Tenderness - Respiratory Respiratory exam: Normal lung sounds bilaterally. negative: Respiratory distress - Cardiovascular Cardiovascular Exam: Regular rate, Normal rhythm, Normal heart sounds - GI/Abdominal GI/Abdominal exam: Soft, Normal bowel sounds. negative: Tenderness - Rectal Rectal exam: Deferred - exam: Deferred - Extremities Extremities exam: Normal inspection, Full ROM, Normal capillary refill. negative: Tenderness - Back Back exam: Reports: Normal inspection, Full ROM. Denies: Muscle spasm, Rash noted, Tenderness - Neurological Neurological exam: Alert, Normal gait, Oriented X3, Reflexes normal - Psychiatric Psychiatric exam: Normal affect, Normal mood - Skin Skin exam: Dry, Intact, Normal color, Warm Course Vital Signs 12/27/18 13:42 Temperature 98.5 F Pulse Rate 76 Respiratory 18 Rate Blood Pressure 120/78 Pulse Ox 99 Disposition Clinical Impression: Dermatitis Disposition: Home, Self-Care Condition: (1) Good Instructions: Contact Dermatitis (ED) Additional Instructions: follow up with family Dr srinivas felix Prescriptions: Triamcinolone Acet Cream [Kenalog Cream] 1 apply TP BID #30 gm Time of Disposition: 14:28 Quality - Quality Measures Quality Measures: N/A - Blood Pressure Screening Does Patient Have Any of the Following: No Blood Pressure Classification: Pre-Hypertensive BP Reading Systolic Measurement: 120 Diastolic Measurement: 78 Screening for High Blood Pressure: < Pre-Hypertensive BP, F/U Documented > [G8950] Pre-Hypertensive Follow-up Interventions: Referral to alternative/primary care provider.
== END 2018-12-27 14:45 | disposition home or self-care (01) ==
LOC: ER 13:10
DX: L30.9 Dermatitis, unspecified (principal); I10 Essential (primary) hypertension; F17.210 Nicotine dependence, cigarettes, uncomplicated; R51 Headache
CPT/HCPCS: 99283